=== PATIENT | male | born 1985 | race Caucasian/White ===

== ENCOUNTER 2017-03-27 21:04 | Emergency (ER) | payer OTHER ==
[~2017-03-27] VITALS: Ht 175.3 cm; Wt 95.4 kg
[~2017-03-27 21:04] MED LIST: MUPI15CR TP; SULF1TAB24 PO
[2017-03-27 21:15] VITALS: BP 124/94
[2017-03-27] MEDS ORDERED: AMOX1TAB61 PO (22:36)
--- NOTE | 2017-03-27 22:37 | PHYS DOC ---
Past History Past Medical History: No Pertinent History Past Surgical History: No Surgical History Additional Smoking Information: CHEWS ABOUT A CAN A DAY Alcohol Use: None Drug Use: None Adult General Chief Complaint Chief Complaint: DENTAL PROBLEM HPI HPI Patient is a 31 year old M who presents with tooth pain on the right side of his mouth. He states that he has had this pain intermittently over the past several weeks. However it has been worse over the past several days. He denies fevers sweats or chills. He feels that his pain is worse with eating, warm or cold, and palpation. His pain is improved with [id number] oral numbing medication. He does chew tobacco Review of Systems Review of Systems Constitutional: Denies fever or chills [] Eyes: Denies change in visual acuity, redness, or eye pain [] HENT: Denies nasal congestion or sore throat [] Respiratory: Denies cough or shortness of breath [] Cardiovascular: No additional information not addressed in HPI [] GI: Denies abdominal pain, nausea, vomiting, bloody stools or diarrhea [] : Denies dysuria or hematuria [] Musculoskeletal: Denies back pain or joint pain [] Integument: Denies rash or skin lesions [] Neurologic: Denies headache, focal weakness or sensory changes [] Endocrine: Denies polyuria or polydipsia [] Allergies Allergies Allergies Coded Allergies Type Severity Reaction Last Updated Verified peanut Allergy Unknown 07/31/16 Yes Physical Exam Physical Exam Constitutional: Well developed, well nourished, no acute distress, non-toxic appearance. [] HENT: Normocephalic, atraumatic, right upper jaw pain noted with palpation of molar Eyes: EOMI, conjunctiva normal, no discharge. [] Neck: Normal range of motion, no tenderness, supple, no stridor. [] Cardiovascular:Heart rate regular rhythm, no murmur [] Lungs & Thorax: Bilateral breath sounds clear to auscultation [] Abdomen: Bowel sounds normal, soft, no tenderness, no masses, no pulsatile masses. [] Skin: Warm, dry, no erythema, no rash. [] Back: No tenderness, no CVA tenderness. [] Extremities: No tenderness, no cyanosis, no clubbing, ROM intact, no edema. [] Neurologic: Alert and oriented X 3, normal motor function, normal sensory function, no focal deficits noted. [] Psychologic: Affect normal, judgement normal, mood normal. [] Current Patient Data Vital Signs Vital Signs Date Time Temp Pulse Resp B/P (MAP) Pulse Ox O2 Delivery O2 Flow Rate FiO2 03/27/17 21:15 97.9 66 20 98 Room Air EKG EKG [] Radiology/Procedures Radiology/Procedures [] Course & Med Decision Making Course & Med Decision Making Pertinent Labs and Imaging studies reviewed. (See chart for details) He was given his first dose of and a biotics in the ER and a prescription was sent with him for the duration of his antibiotics. Dragon Disclaimer Dragon Disclaimer This chart was dictated in whole or in part using Voice Recognition software in a busy, high-work load, and often noisy Emergency Department environment. It may contain unintended and wholly unrecognized errors or omissions. Departure Departure: Impression: Primary Impression: Dental abscess Disposition: HOME, SELF-CARE Condition: STABLE Referrals: PCP,NO (PCP) Patient Instructions: Dental Abscess Additional Instructions: Chepe was seen in the emergency department for dental pain. No emergency medical condition was found on history or physical exam. His symptoms are most consistent with a dental infection. He was given his first dose of antibiotics in the ER. He is given a prescription for the remainder of his antibiotic. He is advised follow-up with the dentist as soon as possible for further management. Scripts Amoxicillin/Potassium Clav (AUGMENTIN 875-125 TABLET) 1 Each Tablet 1 TAB PO BID for 14 Days, #28 TAB Prov: JESÚS SWAN MD 03/27/17 JESÚS SWAN MD Mar 27, 2017 22:36
[2017-03-27] MEDS ORDERED: AMOXICILLIN/K CLAV 875/125MG TABLET. PO ONE (23:00)
== END 2017-03-27 23:03 | disposition home or self-care (01) ==
LOC: ER 21:04
DX: K04.7 Periapical abscess without sinus (principal); F17.220 Nicotine dependence, chewing tobacco, uncomplicated; Z91.010 Allergy to peanuts
CPT/HCPCS: 99283

== ENCOUNTER 2018-02-09 21:52 | Emergency (ER) | payer OTHER ==
[~2018-02-09] VITALS: Ht 175.3 cm; Wt 96.6 kg
[~2018-02-09 21:52] MED LIST changes: +AMOX1TAB61 PO
--- NOTE | 2018-02-09 22:33 | ED.ADGEN ---
Past History Past Medical History: No Pertinent History Past Surgical History: Other Alcohol Use: None Drug Use: None Adult General HPI HPI 32-year-old male presents to the emergency department 3 days after he was bit by a tick on the head of his penis. He admits to swelling, redness and a discomfort and tenderness and his inguinal lymph nodes. He denies any dysuria. He denies any fevers, joint aches, vomiting, headache, photophobia or any other complaints. States that he did get the entire tick out. Review of Systems Review of Systems Constitutional: Denies fever or chills Eyes: Denies change in visual acuity, redness, or eye pain HENT: Denies nasal congestion or sore throat Respiratory: Denies cough or shortness of breath Cardiovascular: No additional information not addressed in HPI GI: Denies abdominal pain, nausea, vomiting, bloody stools or diarrhea : Denies dysuria or hematuria Musculoskeletal: Denies back pain or joint pain Neurologic: Denies headache, focal weakness or sensory changes Endocrine: Denies polyuria or polydipsia All other systems were reviewed and found to be within normal limits, except as documented in this note. Family History Family History no sig Allergies Allergies Allergies Coded Allergies Type Severity Reaction Last Updated Verified peanut Allergy Unknown 07/31/16 Yes Physical Exam Physical Exam GENERAL: Awake, alert, no acute distress HEAD/EYES: Normocephalic, EOMI ENT Airway patent, mucous membranes moist NECK: Supple, no meningismus, no swelling RESP: No respiratory distress, symmetrical expansion CV: Normal peripheral perfusion ABD/GI: Non distended, nontender : There is swelling around a tiny central eschar with central clearing and erythema surrounding up to the pubic region, bilateral tender lymphadenopathy, rash itself is nontender SKIN: Warm, dry NEURO: Normal motor observed PSYCH: Cooperative, appropriate affect Current Patient Data Vital Signs Vital Signs Date Time Temp Pulse Resp B/P (MAP) Pulse Ox O2 Delivery O2 Flow Rate FiO2 02/09/18 22:01 98.0 67 20 98 Room Air EKG EKG [] Radiology/Procedures Radiology/Procedures [] Course & Med Decision Making Course & Med Decision Making Pt. has very classic erythema migrans. Not very common in this area, advised and prescribed 21 days of doxycycline and primary care doctor follow-up. Final Impression Final Impression Erythema migrans Plan: Discharge home Dragcatarino Disclaimer Dragon Disclaimer This electronic medical record was generated, in whole or in part, using a voice recognition dictation system. CRISTIANE CASTELLANOS DO Feb 09, 2018 22:33
[2018-02-09] MEDS ORDERED: DOXY100C2 PO (22:39)
[2018-02-09] MEDS ORDERED: PRED20TA PO (22:39)
[2018-02-09 22:49] VITALS: BP 121/69
== END 2018-02-09 22:50 | disposition home or self-care (01) ==
LOC: ER 21:52
DX: A26.0 Cutaneous erysipeloid (principal); R59.1 Generalized enlarged lymph nodes; Z91.010 Allergy to peanuts
CPT/HCPCS: 99283

== ENCOUNTER 2021-05-06 08:51 | Emergency (ER) | payer SELFPAY ==
[~2021-05-06] VITALS: Ht 175.3 cm; Wt 102.0 kg
[~2021-05-06 08:51] MED LIST changes: +DOXY100C3 PO; +PRED20TA PO
[2021-05-06] MEDS ORDERED: KETOROLAC 30 MG/ML VIAL. IVP ONE (09:30)
[2021-05-06] MEDS ORDERED: ONDANSETRON PF 4 MG/2 ML VIAL. IVP ONE (09:30)
[2021-05-06] MEDS ORDERED: IV NORMAL SALINE 1,000ML 1,000 ML IV ONE (09:30)
[2021-05-06 09:52] LABS: BASO % 0 % (0-3); EOS % 0 % (0-3); HEMATOCRIT 45.2 % (39.0-53.0); HEMOGLOBIN 15.7 g/dL (13.0-17.5); LYMPH % 10 % (24-48); MEAN CORPUSCULAR HEMOGLOBIN 31 pg (25-35); MEAN CORPUSCULAR HGB CONC 35 g/dL (31-37); MEAN CORPUSCULAR VOLUME 89 fL (79-100); MONO # 1.1 x10^3/uL (0.0-1.1); MONO % 11 % (0-9); NEUT # 8.2 x10^3uL (1.8-7.7); NEUT % 79 % (31-73); PLATELET COUNT 173 x10^3/uL (140-400); RED CELL DISTRIBUTION WIDTH 12.7 % (11.5-14.5); WHITE BLOOD COUNT 10.3 x10^3/uL (4.0-11.0)
--- NOTE | 2021-05-06 09:52 | PHYS DOC ---
Past History Past Medical History: No Pertinent History Past Surgical History: Other Alcohol Use: None Drug Use: None General Adult EDM: Chief Complaint: MULTIPLE COMPLAINTS HPI: HPI: Patient is a 35-year-old male that presents today with nausea, vomiting, cough, diarrhea, and fever. Patient states his symptoms with cough and fever started on Wednesday and over the last 72 hours or progressively worsen with him unable to keep fluids down having intractable nausea and vomiting and diarrhea. Patient states that he took his temperature at home and the highest he is gotten is 102.6. Patient states he has not had any Covid vaccine or flu vaccine, and has not been around anybody that has been sick that he knows of. Review of Systems: Review of Systems: Constitutional: fever or chills Eyes: Denies change in visual acuity HENT: Denies nasal congestion or sore throat Respiratory: cough,denies shortness of breath Cardiovascular: Denies chest pain or edema GI: Denies abdominal pain, has nausea, vomiting, diarrhea : Denies dysuria Musculoskeletal: Body aches Integument: Denies rash Neurologic: Denies headache, focal weakness or sensory changes Endocrine: Denies polyuria or polydipsia Lymphatic: Denies swollen glands Psychiatric: Denies depression or anxiety Current Medications: Current Meds: Current Medications Medications (Trade) Dose Ordered Sig/Lory Start Time Stop Time Status Last Admin Dose Admin Ketorolac Tromethamine (Toradol 30mg Vial) 30 mg 1X ONCE 05/06/21 09:30 05/06/21 09:31 DC 05/06/21 09:41 30 MG Ondansetron HCl (Zofran) 4 mg 1X ONCE 05/06/21 09:30 05/06/21 09:31 DC 05/06/21 09:38 4 MG Sodium Chloride 1,000 ml @ 1,000 mls/hr 1X ONCE 05/06/21 09:30 05/06/21 10:29 05/06/21 09:28 1,000 MLS/HR Allergies: Allergies: Allergies Coded Allergies Type Severity Reaction Last Updated Verified peanut Allergy Unknown 05/06/21 Yes Physical Exam: PE: Constitutional: Well developed, well nourished, mild distress, non-toxic a ppearance. [] HENT: Normocephalic, atraumatic, bilateral external ears normal, oropharynx moist, no oral exudates, nose normal, tympanic membranes are normal [] Eyes: PERRLA, EOMI, conjunctiva normal, no discharge. [] Neck: Normal range of motion, no tenderness, supple, no stridor. [] Cardiovascular:Heart rate regular rhythm, no murmur [] Lungs & Thorax: Bilateral breath sounds diminished bases Abdomen: Bowel sounds hyperactive, soft, no tenderness, no masses, no pulsatile masses. [] Skin: Warm, moist, no erythema, no rash. [] Back: No tenderness, no CVA tenderness. [] Extremities: No tenderness, no cyanosis, no clubbing, ROM intact, no edema. Peripheral pulses 2+ [] Neurologic: Alert and oriented X 3, normal motor function, normal sensory function, no focal deficits noted. [] Psychologic: Affect normal, judgement normal, mood normal. [] Current Patient Data: Labs: Laboratory Tests Test 05/06/21 09:20 05/06/21 09:27 05/06/21 09:33 White Blood Count 10.3 x10^3/uL Red Blood Count 5.10 x10^6/uL Hemoglobin 15.7 g/dL Hematocrit 45.2 % Mean Corpuscular Volume 89 fL Mean Corpuscular Hemoglobin 31 pg Mean Corpuscular Hemoglobin Concent 35 g/dL Red Cell Distribution Width 12.7 % Platelet Count 173 x10^3/uL Neutrophils (%) (Auto) 79 % Lymphocytes (%) (Auto) 10 % Monocytes (%) (Auto) 11 % Eosinophils (%) (Auto) 0 % Basophils (%) (Auto) 0 % Neutrophils # (Auto) 8.2 x10^3uL Lymphocytes # (Auto) 1.0 x10^3/uL Monocytes # (Auto) 1.1 x10^3/uL Eosinophils # (Auto) 0.0 x10^3/uL Basophils # (Auto) 0.0 x10^3/uL Sodium Level 138 mmol/L Potassium Level 3.5 mmol/L Chloride Level 102 mmol/L Carbon Dioxide Level 24 mmol/L Anion Gap 12 Blood Urea Nitrogen 17 mg/dL Creatinine 1.3 mg/dL Estimated GFR (Cockcroft-Gault) 63.2 BUN/Creatinine Ratio 13 Glucose Level 115 mg/dL Calcium Level 8.4 mg/dL Total Bilirubin 0.9 mg/dL Aspartate Amino Transf (AST/SGOT) 30 U/L Alanine Aminotransferase (ALT/SGPT) 48 U/L Alkaline Phosphatase 80 U/L Total Protein 8.5 g/dL Albumin 4.2 g/dL Albumin/Globulin Ratio 1.0 Lipase 86 U/L Influenza Type A (Rapid) Negative Influenza Type B (Rapid) Negative SARS-CoV-2 Antigen (Rapid) Positive Current Medications Medications (Trade) Dose Ordered Sig/Lory Route PRN Reason Start Time Stop Time Status Last Admin Dose Admin Sodium Chloride 1,000 ml @ 1,000 mls/hr 1X ONCE IV 05/06/21 09:30 05/06/21 10:29 05/06/21 09:28 Ondansetron HCl (Zofran) 4 mg 1X ONCE IVP 05/06/21 09:30 05/06/21 09:31 DC 05/06/21 09:38 Ketorolac Tromethamine (Toradol 30mg Vial) 30 mg 1X ONCE IVP 05/06/21 09:30 05/06/21 09:31 DC 05/06/21 09:41 Vital Signs: Vital Signs Date Time Temp Pulse Resp B/P (MAP) Pulse Ox O2 Delivery O2 Flow Rate FiO2 05/06/21 11:30 88 16 118/70 (86) 97 05/06/21 10:30 96 18 124/78 (93) 95 05/06/21 09:30 93 18 115/67 (83) 97 05/06/21 08:55 98.9 100 18 119/62 (81) 98 Vital Signs Date Time Temp Pulse Resp B/P (MAP) Pulse Ox O2 Delivery O2 Flow Rate FiO2 05/06/21 08:55 98.9 100 18 119/62 (81) 98 EKG: EKG: [] Radiology/Procedures: Radiology/Procedures: REASON: cough PROCEDURE: CHEST AP ONLY Exam Date: 05/06/2021 9:40 AM XR CHEST 1V Indication: Reason: cough / Spl. Instructions: / History: . FINDINGS/ IMPRESSION: The cardiac silhouette and pulmonary vasculature are within normal limits. There is no focal consolidation, pleural effusion or pneumothorax. The visualized osseous structures are intact. Electronically signed by: Jose David Sears MD (05/06/2021 9:51 AM) [id number] [] Heart Score: C/O Chest Pain: N/A Risk Factors: Risk Factors: DM, Current or recent (<one month) smoker, HTN, HLP, family history of CAD, obesity. Risk Scores: Score 0 - 3: 2.5% MACE over next 6 weeks - Discharge Home Score 4 - 6: 20.3% MACE over next 6 weeks - Admit for Clinical Observation Score 7 - 10: 72.7% MACE over next 6 weeks - Early Invasive Strategies Course & Med Decision Making: Course & Med Decision Making Pertinent Labs and Imaging studies reviewed. (See chart for details) Patient was given instructions that they were Covid positive, and that he would need to quarantine for the next 14 days from the first day of his symptoms starting. Patient was given Zofran prescription for the nausea. Patient is instructed to stay hydrated take Tylenol and/or ibuprofen as needed for pain and fever. And strict return precautions patient verbalized understanding of instructions and is agreeable to the plan of care Dragon Disclaimer: Dragcatarino Disclaimer: This electronic medical record was generated, in whole or in part, using a voice recognition dictation system. Departure Departure: Impression: Primary Impression: COVID-19 Additional Impressions: Nausea & vomiting Qualified Codes: R11.2 - Nausea with vomiting, unspecified Diarrhea Qualified Codes: R19.7 - Diarrhea, unspecified Disposition: 01 HOME / SELF CARE / HOMELESS Condition: STABLE Referrals: PCPHEMA (PCP) Patient Instructions: Nausea and Vomiting Additional Instructions: Tylenol and/or ibuprofen as needed for fever and pain Increase by mouth fluids at home, if nausea vomiting occur take Zofran as needed every 6 hours, diet as tolerated you have been diagnosed with COVID-19. It is an infection caused by a new type of coronavirus. COVID-19 will cause cold-like or mild flu symptoms in most. It can cause more severe symptoms like problems breathing in some. There is no treatment for COVID-19. The body will clear the infection over time. Self-care will help to ease discomfort. Steps to Take: Self-Care Rest as needed. Healthy habits may help you feel better. Steps include: Choose healthy foods including fruits and vegetables. Drink water throughout the day. Get plenty of sleep each night. If you smoke, try to quit. It may ease breathing. Avoid alcohol. Keep Others Healthy The virus can spread to others. Droplets are released every time you sneeze or cough. The droplets can get into the mouth, nose, or eyes of people near you and lead to infection. To lower the chances of spreading COVID-19 to others: Stay at home until your doctor has said it is safe to leave. If you tested positive this will mean staying isolated until both of the following are true: At least 7 days have passed since the start of illness. You are free of fever for at least 72 hours without the use of medicine. During this time: - Avoid public areas, events, or transportation. Do not return to work or school until your doctor has said it is safe to do so. - Call ahead if you need to go to a medical center. Let them know you may have COVID-19. It will help them guide you where to go. They may also ask you to wear a facemask when you come to the office. - If you call for emergency medical services, let them know you may have COVID- 19. While at home: - Try to avoid close contact with others. Stay about 6 feet away. - If possible, spend most of your time in a separate room from others. - Use a face mask if you will be in close contact with others such as sharing a room or vehicle. - Have someone wipe down common surfaces in the home. Use household milk pickup driver every day on areas like doorknobs, counters, or sinks. - Cough or sneeze into a tissue. Throw the tissue away right after use. If a tissue is not available, cough or sneeze into your elbow. - Wash your hands often. Wash them after sneezing or coughing. Use soap and wa ter and wash for at least 20 seconds. Alcohol based hand street light lamp cleaner can be used if soap and water is not available. - Do not prepare food for others. Avoid sharing personal items like forks, spoons, or toothbrushes. - Avoid close contact with pets while you are sick. There is no evidence of the virus passing to pets. This is a safety step until more is known about this virus. Isolation can be frustrating. Social interaction can help. Keep in touch with friends and family through phone and tech options. You can still interact with others in your home, just keep a safe distance of about 6 feet. Follow-up: Your doctors office will check in with you to see if there are any changes in your health. You may be asked to keep track of symptoms to share with them. They will also let you know when you are clear to be in public again. Problems to Look Out For: Contact your doctor if your recovery is not going as you expect. Get emergency care if you have problems such as: - Trouble breathing - Nonstop chest pain or pressure - Changes in awareness, confusion, or problems waking - Lips or face have bluish color - Worsening of symptoms If you think you have an emergency, call for emergency medical services right away. As taken from [facility] [place] Health Scripts Ondansetron (ONDANSETRON ODT) 4 Mg Tab.rapdis 1 TAB PO PRN Q6-8HRS for nausea, #16 TAB Prov: DELIA RODRIGUEZ APRN 05/06/21 DELIA RODRIGUEZ APRN May 06, 2021 09:52
[2021-05-06 10:00] LABS: CALCIUM 8.4 mg/dL (8.5-10.1); CREATININE 1.3 mg/dL (0.7-1.3); GFR 63.2; POTASSIUM 3.5 mmol/L (3.5-5.1)
[2021-05-06 10:12] LABS: ALBUMIN 4.2 g/dL (3.4-5.0); TOTAL BILIRUBIN 0.9 mg/dL (0.2-1.0); TOTAL PROTEIN 8.5 g/dL (6.4-8.2)
[2021-05-06 10:12] LABS: INFLUENZA A PATIENT NEGATIVE (NEGATIVE); INFLUENZA B PATIENT NEGATIVE (NEGATIVE)
[2021-05-06] MEDS ORDERED: ONDA4TAB12 PO (10:42)
[2021-05-06 11:30] VITALS: BP 118/70
== END 2021-05-06 11:45 | disposition home or self-care (01) ==
LOC: ER 08:51
DX: U07.1 COVID-19 (principal); R11.2 Nausea with vomiting, unspecified; R19.7 Diarrhea, unspecified; Z91.010 Allergy to peanuts
CPT/HCPCS: 71045; 80053; 83690; 85025; 87426; 87804; 96361; 96374; 96375; 99284; C9803; J1885; J2405; J7030; U0003

== ENCOUNTER 2021-05-10 11:05 | Emergency (ER) | payer SELFPAY ==
[~2021-05-10] VITALS: Ht 175.3 cm; Wt 103.1 kg
[~2021-05-10 11:05] MED LIST changes: +ONDA4TAB12 PO
[2021-05-10] MEDS ORDERED: IOHEXOL 350 MG/ML 100 ML VIAL. IV ONE (11:30)
--- NOTE | 2021-05-10 11:35 | PHYS DOC ---
Past History Past Medical History: No Pertinent History Additional Past Medical Histor: ADHD Past Surgical History: No Surgical History Alcohol Use: Rarely Drug Use: None General Adult EDM: Chief Complaint: FATIGUE HPI: HPI: 35-year-old male presents with fatigue, body aches, chest pain, shortness of breath. The patient was diagnosed with COVID-19 5 days ago. He presents today because he is feeling worse. He has not measured a fever at home. He states feeling hot right now. He has decreased taste. He denies any cardiac history. Denies smoking, vaping, alcohol, or drug use. Patient was not vaccinated against COVID-19. Review of Systems: Review of Systems: Constitutional: Chills, fatigue, body aches Eyes: Denies change in visual acuity HENT: Denies nasal congestion or sore throat Respiratory: Cough with shortness of breath Cardiovascular: Chest pain GI: Denies abdominal pain, nausea, vomiting, bloody stools or diarrhea : Denies dysuria Musculoskeletal: Denies back pain or joint pain Integument: Denies rash Neurologic: Denies headache, focal weakness or sensory changes Endocrine: Denies polyuria or polydipsia Lymphatic: Denies swollen glands Psychiatric: Denies depression or anxiety Current Medications: Current Meds: Current Medications Medications (Trade) Dose Ordered Sig/Lory Start Time Stop Time Status Last Admin Dose Admin Iohexol (Omnipaque 350 Mg/ml) 100 ml 1X ONCE 05/10/21 11:30 05/10/21 11:31 UNV Allergies: Allergies: Allergies Coded Allergies Type Severity Reaction Last Updated Verified peanut Allergy Unknown 05/06/21 Yes Physical Exam: PE: Constitutional: Well developed, well nourished, no acute distress. [] HENT: Normocephalic, atraumatic, bilateral external ears normal, oropharynx moist, no oral exudates, nose normal. [] Eyes: PERRLA, EOMI, conjunctiva normal, no discharge. [] Neck: Normal range of motion, no tenderness, supple, no stridor. [] Cardiovascular: Heart rate 90, regular rhythm, no murmur [] Lungs & Thorax: Bilateral breath sounds diminished but clear. [] Abdomen: Bowel sounds normal, soft, no tenderness, no masses, no pulsatile masses. [] Skin: Warm, dry, no erythema, no rash. [] Back: No tenderness, no CVA tenderness. [] Extremities: No tenderness, no cyanosis, no clubbing, ROM intact, no edema. [] Neurologic: Alert and oriented X 3, normal motor function, normal sensory function, no focal deficits noted. [] Psychologic: Affect normal, judgement normal, mood normal. [] EKG: EKG: Sinus rhythm, rate 90, normal axis, no ST elevation or depression, PVCs. [] Radiology/Procedures: Radiology/Procedures: [] Impressions: CTA scan of the Chest with Contrast (Pulmonary Embolism protocol) 05/10/2021 Clinical History: Covid 19. Ventricular tachycardia. Technique: After the intravenous administration of 100 cc of Omnipaque 350 contiguous, 0.625 mm axial sections were obtained through the chest. 2 mm axial and 3D MIP coronal and sagittal reconstructed images were obtained. One or more of the following individualized dose reduction techniques were utilized for this study: 1. Automated exposure control. 2. Adjustment of the mA and/or kV according to patient size. 3. Use of iterative reconstruction technique. Findings: Comparison is made to patient's chest radiograph performed earlier today. No filling defect is seen within the major branches of either pulmonary artery. There is no CT evidence of pulmonary embolism. The heart and thoracic aorta are within normal limits. Enlarged likely reactive hilar lymph nodes are seen. These measure 1 to 1.5 cm in size. Patchy perihilar groundglass infiltrates are seen throughout both lungs consistent with the patient's history of Covid 19 pneumonia. No pleural effusion or pneumothorax is seen. Impression: There is no CT evidence of pulmonary embolism. Electronically signed by: Carlos Gregory MD (05/10/2021 12:42 PM) [id number] DICTATED AND SIGNED BY: CARLOS GREGORY MD DATE: 05/10/21 1525 CC: KATALINA MEYER DO; PCP,NO ~MTH0 0 Heart Score: C/O Chest Pain: Yes HEART Score for Chest Pain: HEART Score for Chest Pain Response (Comments) Value History Slighlty/Non-Suspicious 0 ECG Nonspecific Repolarizatio 1 Age < 45 0 Risk Factors 1 or 2 Risk Factors 1 Troponin < Normal Limit 0 Total 2 Risk Factors: Risk Factors: DM, Current or recent (<one month) smoker, HTN, HLP, family history of CAD, obesity. Risk Scores: Score 0 - 3: 2.5% MACE over next 6 weeks - Discharge Home Score 4 - 6: 20.3% MACE over next 6 weeks - Admit for Clinical Observation Score 7 - 10: 72.7% MACE over next 6 weeks - Early Invasive Strategies Course & Med Decision Making: Course & Med Decision Making Pertinent Labs and Imaging studies reviewed. (See chart for details) On arrival the patient is having frequent PVCs. He denies history of PVCs or any other cardiac condition. He had a 3 to 4-second run of V. tach after being hooked to the monitor. We have prepared cardiac pads in the crash cart. Patient's labs are unremarkable. His troponin is negative. After a liter of fluid, he has PVCs have slowed. We will give him a second liter. His CT angiogram of the chest shows bilateral groundglass opacities consistent with COVID-19 pneumonia. There is no pulmonary embolus. The patient's oxygen level has down below 90. He continues to be tachycardic to 120. His oxygen saturation on room air is usually above 90, but his respiratory rate is in the upper twenties. I'm concerned about the patient worsening. I spoke with the hospitalist, Dr. De and he has advised magnesium, potassium, IV antibiotics, IV steroids, and will Lovenox. He has accepted the patient for admission. [] Yanci Disclaimer: Yanci Disclaimer: This electronic medical record was generated, in whole or in part, using a voice recognition dictation system. Departure Departure: Impression: Primary Impression: COVID-19 Disposition: ADMITTED INPATIENT Admitting Physician: Andrew De Condition: GUARDED Referrals: PCP,HEMA (PCP) KATALINA MEYER DO May 10, 2021 11:35
[2021-05-10] MEDS ORDERED: ONDANSETRON PF 4 MG/2 ML VIAL. IVP ONE (11:45)
[2021-05-10] MEDS ORDERED: IV NORMAL SALINE 1,000ML 1,000 ML IV ONE ×2 (11:45→12:45)
[2021-05-10 11:58] LABS: BASO % 0 % (0-3); EOS % 0 % (0-3); HEMATOCRIT 44.6 % (39.0-53.0); HEMOGLOBIN 15.8 g/dL (13.0-17.5); LYMPH # 0.9 x10^3/uL (1.0-4.8); LYMPH % 17 % (24-48); MEAN CORPUSCULAR HEMOGLOBIN 31 pg (25-35); MEAN CORPUSCULAR HGB CONC 35 g/dL (31-37); MEAN CORPUSCULAR VOLUME 87 fL (79-100); MONO # 0.6 x10^3/uL (0.0-1.1); MONO % 11 % (0-9); NEUT # 4.1 x10^3uL (1.8-7.7); NEUT % 73 % (31-73); PLATELET COUNT 137 x10^3/uL (140-400); RED BLOOD COUNT 5.15 x10^6/uL (4.30-5.70); RED CELL DISTRIBUTION WIDTH 12.7 % (11.5-14.5); WHITE BLOOD COUNT 5.7 x10^3/uL (4.0-11.0)
[2021-05-10 12:01] LABS: CALCIUM 8.5 mg/dL (8.5-10.1); CREATININE 1.3 mg/dL (0.7-1.3); GFR 63.2; POTASSIUM 3.4 mmol/L (3.5-5.1)
[2021-05-10 12:09] LABS: ALBUMIN 3.4 g/dL (3.4-5.0); ALBUMIN/GLOBULIN RATIO 0.7 (1.0-1.7); TOTAL BILIRUBIN 0.8 mg/dL (0.2-1.0); TOTAL PROTEIN 8.2 g/dL (6.4-8.2)
--- NOTE | 2021-05-10 12:27 | EKG ---
[address] [address] Test Date: 2021-05-10 Test Time: 11:21:47 Pat Name: JUDITH ISAACS Department: Room: Gender: M Entrepreneur: MAYUR : 1985 Requested By: KATALINA MEYER Order Number: [id number] Reading MD: Measurements Intervals [place] Rate: 90 P: 36 WV: 142 QRS: 15 QRSD: 100 T: 36 QT: 316 QTc: 390 Interpretive Statements SINUS RHYTHM VENTRICULAR PREMATURE COMPLEX(ES) ABNORMAL ECG RI6.02 No previous ECG available for comparison
--- NOTE | 2021-05-10 12:44 | RAD ---
CTA scan of the Chest with Contrast (Pulmonary Embolism protocol) 05/10/2021 Clinical History: Covid 19. Ventricular tachycardia. Technique: After the intravenous administration of 100 cc of Omnipaque 350 contiguous, 0.625 mm axial sections were obtained through the chest. 2 mm axial and 3D MIP coronal and sagittal reconstructed images were obtained. One or more of the following individualized dose reduction techniques were utilized for this study: 1. Automated exposure control. 2. Adjustment of the mA and/or kV according to patient size. 3. Use of iterative reconstruction technique. Findings: Comparison is made to patient's chest radiograph performed earlier today. No filling defect is seen within the major branches of either pulmonary artery. There is no CT eviden ce of pulmonary embolism. The heart and thoracic aorta are within normal limits. Enlarged likely reac tive hilar lymph nodes are seen. These measure 1 to 1.5 cm in size. Patchy perihilar groundglass infiltrates are seen throughout both lungs consistent with the patient's history of Covid 19 pneumonia. No pleural effusion or pneumothorax is seen. Impression: There is no CT evidence of pulmonary embolism. Electronically signed by: Carlos Peguero MD (05/10/2021 12:42 PM) [id number]
--- NOTE | 2021-05-10 13:12 | RAD ---
Study: XR CHEST 1V Indication: Shortness of breath. Comparison: 05/06/2021 Findings: Worsened appearance of the chest with progressive infiltrates throughout both lungs. No pleural effus ion or pneumothorax. Unchanged cardiomediastinal silhouette and randall. Impression: More extensive airspace infiltrates in relation to the 05/06/2021 comparison most likely an atypical/ viral pneumonia given history. Electronically signed by: ELZBIETA OWENS MD (05/10/2021 1:09 PM) [id number]
[2021-05-10 13:50] LABS: BARBITURATES NEG (NEG); BENZODIAZEPINES NEG (NEG); CANNABINOIDS NEG (NEG); COCAINE NEG (NEG); METHADONE NEG (NEG); OPIATES NEG (NEG); PHENCYCLIDINE NEG (NEG)
[2021-05-10 13:54] LABS: AMPHETAMINE/METHAMPHETAMINE NEG (NEG)
[2021-05-10 13:55] LABS: BACTERIA,URINE 0 /HPF (0-FEW); BILIRUBIN,URINE NEG (NEG); CLARITY,URINE CLEAR; COLOR,URINE YELLOW; GLUCOSE,URINE NEG (NEG); NITRITE,URINE NEG (NEG); RBC,URINE OCC /HPF (0-2); UROBILINOGEN,URINE 0.2 mg/dL (0.2 mg/dL)
[2021-05-10] MEDS ORDERED: DEXAMETHASONE SOD PHOS 10 MG/ML VIAL. IVP ONE (14:15)
[2021-05-10] MEDS ORDERED: POTASSIUM CHLORIDE 20 MEQ TABLET.ER. PO ONE (14:15)
[2021-05-10] MEDS ORDERED: MAGNESIUM SULFATE 1GM 100 ML IV ONE (14:15)
[2021-05-10] MEDS ORDERED: AZITHROMYCIN 500 MG in IV NORMAL SALINE 250ML 250 ML IV ONE (14:15)
[2021-05-10] MEDS ORDERED: ENOXAPARIN ** NOTE DOSE ** SYRINGE SQ ONE (14:15)
[2021-05-10] MEDS ORDERED: ACETAMINOPHEN 325 MG TABLET PO PRN (14:30)
[2021-05-10] MEDS ORDERED: ONDANSETRON PF 4 MG/2 ML VIAL. IVP PRN (14:30)
[2021-05-10] MEDS ORDERED: AZITHROMYCIN 500 MG VIAL. IV ONE (14:35)
[2021-05-10] MEDS ORDERED: IV NORMAL SALINE 250ML 250 ML ONE (14:35)
[2021-05-10] MEDS ORDERED: IV NORMAL SALINE 50ML 50 ML ONE (14:35)
[2021-05-10] MEDS ORDERED: cefTRIAXone SODIUM 1 GM VIAL ONE (14:35)
[2021-05-10] MEDS ORDERED: LOPERAMIDE 2 MG CAPSULE PO ONE ×2 (14:47→15:00)
[2021-05-10] MEDS: FAMOTIDINE 20 MG TABLET PO SCH (23:36)
[2021-05-10] MEDS: DEXAMETHASONE SOD PHOS 4 MG/ML VIAL. IVP SCH (23:37)
[2021-05-11] MEDS ORDERED: CHOLECALCIFEROL (VITAMIN D3) 50,000 UNIT CAPSULE PO SCH (09:00)
[2021-05-11] MEDS ORDERED: ENOXAPARIN 40 MG/0.4 ML SYRINGE. SQ SCH (09:00)
[2021-05-11] MEDS ORDERED: ASCORBIC ACID 1,000 MG TABLET PO SCH (09:00)
[2021-05-11] MEDS ORDERED: ZINC SULFATE 220 MG CAPSULE. PO SCH (09:00)
[2021-05-11] MEDS: DEXAMETHASONE SOD PHOS 4 MG/ML VIAL. IVP SCH (09:04)
[2021-05-11] MEDS: FAMOTIDINE 20 MG TABLET PO SCH (09:04)
[2021-05-11] MEDS ORDERED: AZITHROMYCIN 500 MG VIAL. IV ONE (12:25)
[2021-05-11] MEDS ORDERED: IV NORMAL SALINE 50ML 50 ML ONE (12:25)
[2021-05-11] MEDS ORDERED: IV NORMAL SALINE 250ML 250 ML ONE (12:25)
[2021-05-11] MEDS ORDERED: cefTRIAXone SODIUM 1 GM VIAL ONE (12:25)
[2021-05-11] MEDS ORDERED: AZIT250T6 PO (13:03)
[2021-05-11] MEDS ORDERED: DEXA4TAB63 PO (13:03)
[2021-05-11 13:10] VITALS: BP 121/67
[2021-05-11] MEDS ORDERED: AZITHROMYCIN 250 MG in IV NORMAL SALINE 250ML 250 ML IV SCH (14:00)
[2021-05-11] MEDS ORDERED: DEXA6TAB6 PO (18:19)
[2021-05-11] MEDS ORDERED: AZIT250T PO (18:19)
[2021-05-11] MEDS ORDERED: CEFD300C PO (18:19)
[2021-05-11 18:36] LABS: BASO % 0 % (0-3); EOS % 0 % (0-3); HEMATOCRIT 45.3 % (39.0-53.0); HEMOGLOBIN 15.4 g/dL (13.0-17.5); LYMPH # 0.8 x10^3/uL (1.0-4.8); LYMPH % 15 % (24-48); MEAN CORPUSCULAR HEMOGLOBIN 30 pg (25-35); MEAN CORPUSCULAR HGB CONC 34 g/dL (31-37); MEAN CORPUSCULAR VOLUME 89 fL (79-100); MONO # 0.6 x10^3/uL (0.0-1.1); MONO % 12 % (0-9); NEUT # 3.5 x10^3uL (1.8-7.7); NEUT % 72 % (31-73); PLATELET COUNT 126 x10^3/uL (140-400); RED BLOOD COUNT 5.08 x10^6/uL (4.30-5.70); RED CELL DISTRIBUTION WIDTH 12.8 % (11.5-14.5); WHITE BLOOD COUNT 4.9 x10^3/uL (4.0-11.0)
[2021-05-11 18:59] LABS: GFR 85.5; POTASSIUM 3.9 mmol/L (3.5-5.1)
[2021-05-11 19:06] LABS: ALBUMIN 2.9 g/dL (3.4-5.0); ALBUMIN/GLOBULIN RATIO 0.6 (1.0-1.7); TOTAL BILIRUBIN 0.5 mg/dL (0.2-1.0); TOTAL PROTEIN 7.5 g/dL (6.4-8.2)
--- NOTE | 2021-05-11 19:25 | SSS ---
DATE OF SERVICE: 05/11/2021 ADMIT DATE: 05/10/2021 HISTORY OF PRESENT ILLNESS: The patient is a 35-year-old male patient who presented to the Emergency Room with a complaint of fatigue, body aches, chest pain, shortness of breath. He was diagnosed with COVID-19 five days ago. He presents to the Emergency Room of [facility], he is feeling worse. He has not measured fever at home. He states feeling hot right now. He has decreased taste. He denied any cardiac history. Denied any smoking or vaping, alcohol or drug use. He was not vaccinated against COVID-19. He was extensively investigated in the Emergency Room and has had lab work as well as imaging studies. His lab work showed that his CBC was normal. His pH was 7.48, pCO2 of 35, pO2 of 40. It was venous blood. His chemistry, he has hyponatremia, mild hypokalemia and his magnesium was 2.2. His urinalysis was essentially unremarkable and toxic screen was negative. Apparently, while in the Emergency Room, he was noted to have multiple ventricular ectopic beats and short runs of ventricular tachycardia; however, on questioning him, the patient denied any history of frequent PVCs or any other cardiac condition. He also had episodes of 3-4 seconds run of V-tach after being hooked to the monitor. He had prepared. The patient's labs were unremarkable. His troponin was negative. After a liter of fluid, his PVCs has slowed down. He did receive another liter of fluid. His CT angiogram of the chest shows bilateral ground glass opacities consistent with COVID-19 pneumonia, but there is no pulmonary emboli. The the patient's oxygen level was down below 90. He continues to be tachycardic to 120. His oxygen saturation on room air is usually above 90, but his respiratory rate was in the upper 20s. As there was concern about his condition worsening, we did check his magnesium and potassium and started on IV antibiotic, IV steroids as well as Lovenox and the plan was for him to be admitted today for inpatient treatment. However, his condition has stabilized. He is now maintaining his oxygen saturation at 96-97% on room air. His heart rate has normalized. In fact, he is emphasizing he is in sinus bradycardia. Apart from cough, he denied any other complaint, and therefore, a decision was made to discharge him home to continue on oral antibiotic and steroids with a clear instruction that if his symptoms deteriorated, especially if his oxygen is persistently below 90%, he has recurrent cough or shortness of breath that is worsening or has fever, he should come to the Emergency Room [facility]. PAST MEDICAL HISTORY: Unremarkable except ADHD. PAST SURGICAL HISTORY: Unremarkable except some surgery for his eyes when he was a child. ALLERGIES: He has no known drug allergies. MEDICATIONS: He is currently on no medication. FAMILY HISTORY: Noncontributory. SOCIAL HISTORY: He is ; however, he does not smoke, drink alcohol or use recreational drugs. 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 PHYSICAL EXAMINATION: GENERAL: When I examined him this evening, he looked well and was clearly in no apparent respiratory distress. There was no pallor, jaundice, cyanosis or thyromegaly. No jugular venous distention. No limb edema. VITAL SIGNS: His heart rate was 69, blood pressure is 121/67, temperature was 99.2, respiratory rate was 20 and oxygen saturation was 96% on room air. HEAD, EYES, EARS, NOSE, AND THROAT: Normocephalic, atraumatic. NECK: Supple. HEART: Showed normal first and second heart sounds, no gallop or murmur. CHEST: Shows central trachea, equal bilateral expansion, air entry, vesicular breath sounds. I could not appreciate any crepitation or rhonchi. ABDOMEN: Distended, soft, nontender. NEUROLOGIC: He was grossly intact. LABORATORY DATA: His white cell count was 5700, hemoglobin 15.8, hematocrit 44.6, MCV 87 and platelet count of 137,000 with a normal manual differential. His chemistry showed a serum sodium of 129, potassium 3.4, chloride 90, bicarbonate 28, anion gap of 11, BUN 15, creatinine 1.3. Estimated GFR was 63, glucose 118, calcium was 8.5, magnesium was 2.2. Total bilirubin and alkaline phosphatase are normal. AST, ALT is slightly elevated. His total protein 8.2, albumin was 3.4. Urinalysis essentially unremarkable. Toxic screen was negative and his chest x-ray showed worsened appearance of the chest with progressive infiltrate throughout both lungs. No pleural effusion or pneumothorax, unchanged cardiomediastinal silhouette and randall. Impression: More extensive airspace infiltrate in relation to 05/06/2021. Comparison most likely an atypical or viral pneumonia given history. His CT angio of the chest showed no filling defect is seen within the major branches of the either pulmonary artery. There is no CT evidence of pulmonary embolism. The heart and thoracic aorta are within normal limits; enlarged, likely reactive hilar lymph nodes are seen. These measures up to 1-1.5 cm in size. Patchy perihilar ground glass infiltrates are seen throughout both lungs consistent with patient's history of COVID-19 pneumonia. No pleural effusion or pneumothorax is seen. ASSESSMENT AND PLAN: In summary, this is a 35-year-old male patient who was seen in the Emergency Room with COVID-19 pneumonia. He has also multiple episodes of premature ventricular contraction and short runs of ventricular tachycardia that has completely subsided. He is now maintaining his oxygen saturation of 96% on room air with no requirement for oxygen, and therefore, the patient will be discharged home to continue on Zithromax and cefdinir as well as dexamethasone. I asked him to buy a pulse oximeter, it costs about $18 from [employer] to monitor his oxygen saturation and if he has symptoms worsened in any way, shape or form, particularly has persistent hypoxemia, worsening shortness of breath or fever, he should come to the Emergency Room [facility]. LETICIA/EKT/YUNI DR: LETICIA/kalen TID: [id number]
== END 2021-05-11 21:14 | disposition home or self-care (01) ==
LOC: ER 11:05
DX: U07.1 COVID-19 (principal); R07.9 Chest pain, unspecified; Z91.018 Allergy to other foods
CPT/HCPCS: 36415; 71045; 71275; 80053; 80307; 81001; 82803; 83735; 84484; 85025; 93005; 96361; 96365; 96366; 96367; 96368; 96372; 96375; 99285; J0456; J0696; J1100; J1650; J2405; J3475; J7030; J7050; Q9967

== ENCOUNTER 2021-05-12 07:06 | Inpatient (IN) | payer SELFPAY ==
[~2021-05-12] VITALS: Ht 177.8 cm; Wt 98.5 kg
[~2021-05-12 07:06] MED LIST changes: +AZIT250T PO; +AZIT250T6 PO; +CEFD300C PO; +DEXA4TAB63 PO; +DEXA6TAB6 PO
--- NOTE | 2021-05-12 08:28 | PHYS DOC ---
Past History Past Medical History: No Pertinent History Additional Past Medical Histor: ADHD Past Surgical History: No Surgical History Alcohol Use: None Drug Use: None General Adult EDM: Chief Complaint: SHORTNESS OF BREATH HPI: HPI: 35-year-old male returns the emergency room via EMS for shortness of breath. Patient just left this facility 9 hours ago. He has confirmed COVID-19. He returned the emergency room because his oxygen saturation at home was in the low 80s. EMS did find the patient to be in the mid 80s on room air so they placed him on 4 L of oxygen. He then improved and 95%. They transported him to the emergency room. Patient has no new complaints. Review of Systems: Review of Systems: Constitutional: Body aches, fatigue. Eyes: Denies change in visual acuity HENT: Denies nasal congestion or sore throat Respiratory: shortness of breath Cardiovascular: Denies chest pain or edema GI: Denies abdominal pain, nausea, vomiting, bloody stools or diarrhea : Denies dysuria Musculoskeletal: Denies back pain or joint pain Integument: Denies rash Neurologic: Denies headache, focal weakness or sensory changes Endocrine: Denies polyuria or polydipsia Lymphatic: Denies swollen glands Psychiatric: Denies depression or anxiety Allergies: Allergies: Allergies Coded Allergies Type Severity Reaction Last Updated Verified peanut Allergy Unknown 05/06/21 Yes Physical Exam: PE: Constitutional: Well developed, well nourished, no acute distress, non-toxic appearance. [] HENT: Normocephalic, atraumatic, bilateral external ears normal, oropharynx moist, no oral exudates, nose normal. [] Eyes: PERRLA, EOMI, conjunctiva normal, no discharge. [] Neck: Normal range of motion, no tenderness, supple, no stridor. [] Cardiovascular: Heart rate regular rhythm, no murmur [] Lungs & Thorax: Bilateral breath sounds coarse [] Abdomen: Bowel sounds normal, soft, no tenderness, no masses, no pulsatile masses. [] Skin: Warm, dry, no erythema, no rash. [] Back: No tenderness, no CVA tenderness. [] Extremities: No tenderness, no cyanosis, no clubbing, ROM intact, no edema. [] Neurologic: Alert and oriented X 3, normal motor function, normal sensory function, no focal deficits noted. [] Psychologic: Affect normal, judgement normal, mood normal. [] Current Patient Data: Vital Signs: Vital Signs Date Time Temp Pulse Resp B/P (MAP) Pulse Ox O2 Delivery O2 Flow Rate FiO2 05/12/21 07:26 73 28 92/35 (54) 88 Room Air EKG: EKG: [] Radiology/Procedures: Radiology/Procedures: [] Heart Score: C/O Chest Pain: N/A Risk Factors: Risk Factors: DM, Current or recent (<one month) smoker, HTN, HLP, family history of CAD, obesity. Risk Scores: Score 0 - 3: 2.5% MACE over next 6 weeks - Discharge Home Score 4 - 6: 20.3% MACE over next 6 weeks - Admit for Clinical Observation Score 7 - 10: 72.7% MACE over next 6 weeks - Early Invasive Strategies Course & Med Decision Making: Course & Med Decision Making Pertinent Labs and Imaging studies reviewed. (See chart for details) After a short time at home, the patient appears to have worsened and needs oxygen at this time. He is on supplemental oxygen in the emergency room. I will admit the patient to the hospital but he will be held in the emergency room as we have no beds. I spoke with Dr. De and he is accepted the patient for admission. [] Dragon Disclaimer: Dragcatarino Disclaimer: This electronic medical record was generated, in whole or in part, using a voice recognition dictation system. Departure Departure: Impression: Primary Impression: COVID-19 Additional Impression: Pneumonia due to COVID-19 virus Disposition: ADMITTED INPATIENT Admitting Physician: Andrew De Condition: STABLE Referrals: PCP,HEMA (PCP) KATALINA MEYER DO May 12, 2021 08:28
[2021-05-12] MEDS ORDERED: ENOXAPARIN ** NOTE DOSE ** SYRINGE SQ SCH (09:00)
[2021-05-12] MEDS ORDERED: ACETAMINOPHEN 325 MG TABLET PO PRN (09:00)
[2021-05-12] MEDS ORDERED: DEXAMETHASONE SOD PHOS 10 MG/ML VIAL. IV SCH (09:00)
[2021-05-12] MEDS ORDERED: ONDANSETRON PF 4 MG/2 ML VIAL. IVP PRN (09:00)
[2021-05-12] MEDS ORDERED: IV NORMAL SALINE 50ML 50 ML ONE (09:08)
[2021-05-12] MEDS ORDERED: cefTRIAXone SODIUM 1 GM VIAL ONE (09:09)
[2021-05-12] MEDS: AZITHROMYCIN 250 MG TABLET. PO SCH (09:12)
[2021-05-12 09:29] LABS: BASO % 0 % (0-3); EOS % 0 % (0-3); HEMATOCRIT 41.1 % (39.0-53.0); HEMOGLOBIN 14.4 g/dL (13.0-17.5); LYMPH # 0.7 x10^3/uL (1.0-4.8); LYMPH % 8 % (24-48); MEAN CORPUSCULAR HEMOGLOBIN 31 pg (25-35); MEAN CORPUSCULAR HGB CONC 35 g/dL (31-37); MEAN CORPUSCULAR VOLUME 87 fL (79-100); MONO # 0.7 x10^3/uL (0.0-1.1); MONO % 8 % (0-9); NEUT # 7.1 x10^3uL (1.8-7.7); NEUT % 84 % (31-73); PLATELET COUNT 155 x10^3/uL (140-400); RED BLOOD COUNT 4.71 x10^6/uL (4.30-5.70); RED CELL DISTRIBUTION WIDTH 12.8 % (11.5-14.5); WHITE BLOOD COUNT 8.5 x10^3/uL (4.0-11.0)
--- NOTE | 2021-05-12 09:43 | RAD ---
EXAM: Chest, single view. HISTORY: Covid 19. Shortness of breath. COMPARISON: 05/10/2021 FINDINGS: A frontal view of the chest is obtained. There is increased diffuse interstitial and alveol ar infiltrate. There is no pleural effusion or pneumothorax. The heart is stable in size. IMPRESSION: Increased interstitial and alveolar infiltrate. Electronically signed by: Matilde Carver MD (05/12/2021 9:41 AM) [id number]
[2021-05-12 09:54] LABS: CALCIUM 7.6 mg/dL (8.5-10.1); CREATININE 1.1 mg/dL (0.7-1.3); GFR 76.6; POTASSIUM 3.6 mmol/L (3.5-5.1)
[2021-05-12 10:00] LABS: ALBUMIN 2.8 g/dL (3.4-5.0); ALBUMIN/GLOBULIN RATIO 0.7 (1.0-1.7); TOTAL BILIRUBIN 0.6 mg/dL (0.2-1.0)
--- NOTE | 2021-05-12 15:31 | HP ---
DATE OF SERVICE: 05/12/2021 ADMIT DATE: 05/12/2021 HISTORY OF PRESENT ILLNESS: The patient is a 35-year-old male patient who was seen in this Emergency Department yesterday, but he was discharged yesterday as he was doing well. His oxygen saturation was 97% and he did have initially multiple episodes of premature ventricular contractions as well as short runs of ventricular tachycardia that has resolved. As that has subsided, a decision was made to discharge him home, to continue on oral antibiotic and steroids. However, he was given clear instructions to come back to the nearest Emergency Room if he developed more shortness of breath or fever or hypoxia, and in fact, he returned to the Emergency Room via EMS with shortness of breath. He left this facility about 9 hours ago. He has confirmed it could be COVID-19. He came to the Emergency Room because his oxygen saturation at home was down to 80%. EMS did find the patient to be in mid-80s on room air and he was placed on 4 liters of oxygen. He did improve to 95% and was transported to the Emergency Room for further evaluation and treatment. On questioning him, he stated that he has started complaining of more shortness of breath, cough, phlegm, chest pain, nausea and some vomiting, but no diarrhea. He did have also fever. He was restarted on his antibiotics as well as Lovenox, remdesivir and dexamethasone and oxygen and will be admitted back to the hospital to continue inpatient treatment. PAST MEDICAL HISTORY: Unremarkable except ADHD. PAST SURGICAL HISTORY: Unremarkable except for surgery of his eyes when he was a child. ALLERGIES: He has no known drug allergies. MEDICATIONS: He was discharged on cefdinir, Zithromax and dexamethasone. FAMILY HISTORY: Noncontributory. SOCIAL HISTORY: He is , has a son and a daughter. He does not smoke, drink alcohol or use recreational drugs. 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 REVIEW OF SYSTEMS: As per history of present illness. PHYSICAL EXAMINATION: GENERAL: When I examined him this afternoon, he was resting slightly propped up in bed, in no apparent respiratory distress. There was no pallor, jaundice, cyanosis or thyromegaly. No jugular venous distention. No limb edema. VITAL SIGNS: His heart rate was 79, blood pressure was 118/70, temperature 98.1, respiratory rate 20, and oxygen saturation was 95% on 5 liters of oxygen. HEAD, EYES, EARS, NOSE AND THROAT: Normocephalic, atraumatic. NECK: Supple. HEART: Showed normal first and second heart sounds. No gallop, rub or murmur. CHEST: Clear to auscultation. Chest shows central trachea, equal bilateral chest expansion, air entry, vesicular breath sounds with bilateral basal crepitation posteriorly. I could not really appreciate any rhonchi. ABDOMEN: Distended, soft, nontender. NEUROLOGIC: He was grossly intact. LABORATORY DATA: His lab work showed a white cell count of 8500, hemoglobin 14.4, hematocrit 41, MCV 87 and platelet count of 155,000, with a manual differential of 84% polymorphs, 8% lymphocytes and 8% monocytes. His chemistry showed a serum sodium of 133, potassium 3.6, chloride 98, bicarbonate 26, anion gap of 9, BUN 19, creatinine 1.1. Estimated GFR was 76 mL per minute. His glucose 130, calcium was 7.6. Total bilirubin, AST, ALT, alkaline phosphatase were normal. Total protein 7, albumin was 2.8. IMAGING: His chest x-ray showed that there is increase in diffuse interstitial alveolar infiltrate. There is no pleural effusion or pneumothorax. The heart size is stable. ASSESSMENT AND PLAN: The patient was admitted with COVID-19 pneumonia, acute hypoxic respiratory failure. He did have a CT angio of the chest yesterday, which showed no evidence of pulmonary emboli. Plan is to continue with IV antibiotics in the form of ceftriaxone and Zithromax. Continue with dexamethasone. We did order remdesivir, contact the pharmacy to see if he qualifies for that, and also we will start him on Lovenox and oxygen, titrate as needed to maintain his oxygen saturation above 90%. LETICIA/EN DR: Gabo TID: [id number]
[2021-05-12] MEDS ORDERED: REMDESIVIR LOAD in IV NORMAL SALINE 250ML TV IV ONE (17:00)
[2021-05-12 23:04] VITALS: BP 108/63
[2021-05-12] MEDS: FAMOTIDINE 20 MG TABLET PO SCH (23:45)
[2021-05-12] MEDS ORDERED: CHOLECALCIFEROL (VITAMIN D3) 50,000 UNIT CAPSULE PO SCH (23:45)
[2021-05-13] MEDS: ENOXAPARIN 40 MG/0.4 ML SYRINGE. SQ SCH ×3 (00:11→21:28)
[2021-05-13] MEDS: ZINC SULFATE 220 MG CAPSULE. PO SCH ×2 (00:14→10:48)
[2021-05-13] MEDS: ASCORBIC ACID 1,000 MG TABLET PO SCH ×2 (00:14→10:49)
[2021-05-13 05:20] VITALS: BP 99/64
[2021-05-13] MEDS ORDERED: BUDESONIDE 0.5 MG/2 ML NEBU NEB PRN (08:30)
[2021-05-13] MEDS ORDERED: IPRATRPIUM/ALBUTEROL 0.5/2.5MG 3 ML NEBU. NEB PRN (08:30)
[2021-05-13] MEDS ORDERED: CHOLECALCIFEROL (VITAMIN D3) 50,000 UNIT CAPSULE PO SCH (09:00)
[2021-05-13 10:08] LABS: ALBUMIN 2.5 g/dL (3.4-5.0); ALBUMIN/GLOBULIN RATIO 0.6 (1.0-1.7); CREATININE 0.9 mg/dL (0.7-1.3); GFR 96.6; MAGNESIUM 2.7 mg/dL (1.8-2.4); POTASSIUM 3.6 mmol/L (3.5-5.1); TOTAL BILIRUBIN 0.7 mg/dL (0.2-1.0); TOTAL PROTEIN 6.7 g/dL (6.4-8.2)
[2021-05-13 10:35] LABS: BASO % 0 % (0-3); EOS % 0 % (0-3); HEMATOCRIT 38.6 % (39.0-53.0); HEMOGLOBIN 13.7 g/dL (13.0-17.5); LYMPH # 0.7 x10^3/uL (1.0-4.8); LYMPH % 9 % (24-48); MEAN CORPUSCULAR HEMOGLOBIN 31 pg (25-35); MEAN CORPUSCULAR HGB CONC 35 g/dL (31-37); MEAN CORPUSCULAR VOLUME 88 fL (79-100); MONO # 0.5 x10^3/uL (0.0-1.1); MONO % 7 % (0-9); NEUT # 6.3 x10^3uL (1.8-7.7); NEUT % 83 % (31-73); PLATELET COUNT 131 x10^3/uL (140-400); RED BLOOD COUNT 4.39 x10^6/uL (4.30-5.70); RED CELL DISTRIBUTION WIDTH 12.8 % (11.5-14.5); WHITE BLOOD COUNT 7.6 x10^3/uL (4.0-11.0)
[2021-05-13] MEDS: IPRATROPIUM/ALBUTEROL 20/100mcg/INH INHALER. INH SCH ×5 (10:46→21:26)
[2021-05-13] MEDS: DEXAMETHASONE SOD PHOS 10 MG/ML VIAL. IV SCH (10:48)
[2021-05-13] MEDS: FAMOTIDINE 20 MG TABLET PO SCH ×2 (10:48→21:28)
[2021-05-13] MEDS: LACTOBACILLUS RHAMNOSUS GG 1 CAPSULE. PO SCH ×2 (10:48→21:28)
[2021-05-13] MEDS: AZITHROMYCIN 250 MG TABLET. PO SCH (10:48)
[2021-05-13 11:55] VITALS: BP 105/63
[2021-05-13 15:25] VITALS: BP 110/68
[2021-05-13] MEDS: REMDESIVIR 100mg in NORMAL SALINE 250ML X 4 DAYS IV SCH (17:24)
[2021-05-13 21:07] VITALS: BP 105/66
[2021-05-14 00:12] VITALS: BP 88/54
[2021-05-14 05:58] VITALS: BP 105/68
[2021-05-14 07:15] LABS: BASO % 0 % (0-3); EOS % 0 % (0-3); HEMATOCRIT 41.5 % (39.0-53.0); HEMOGLOBIN 14.3 g/dL (13.0-17.5); LYMPH # 0.7 x10^3/uL (1.0-4.8); LYMPH % 10 % (24-48); MEAN CORPUSCULAR HEMOGLOBIN 31 pg (25-35); MEAN CORPUSCULAR HGB CONC 35 g/dL (31-37); MEAN CORPUSCULAR VOLUME 89 fL (79-100); MONO # 0.5 x10^3/uL (0.0-1.1); MONO % 7 % (0-9); NEUT # 6.3 x10^3uL (1.8-7.7); NEUT % 83 % (31-73); PLATELET COUNT 160 x10^3/uL (140-400); RED BLOOD COUNT 4.68 x10^6/uL (4.30-5.70); RED CELL DISTRIBUTION WIDTH 12.8 % (11.5-14.5); WHITE BLOOD COUNT 7.5 x10^3/uL (4.0-11.0)
[2021-05-14 07:24] LABS: ALBUMIN 2.5 g/dL (3.4-5.0); ALBUMIN/GLOBULIN RATIO 0.6 (1.0-1.7); CREATININE 0.9 mg/dL (0.7-1.3); GFR 96.6; POTASSIUM 4.2 mmol/L (3.5-5.1); TOTAL BILIRUBIN 0.6 mg/dL (0.2-1.0); TOTAL PROTEIN 6.7 g/dL (6.4-8.2)
[2021-05-14] MEDS: IPRATROPIUM/ALBUTEROL 20/100mcg/INH INHALER. INH SCH ×4 (08:44→20:51)
[2021-05-14] MEDS: AZITHROMYCIN 250 MG TABLET. PO SCH (08:45)
[2021-05-14] MEDS: ENOXAPARIN 40 MG/0.4 ML SYRINGE. SQ SCH ×2 (08:45→20:50)
[2021-05-14] MEDS: ASCORBIC ACID 1,000 MG TABLET PO SCH (08:45)
[2021-05-14] MEDS: LACTOBACILLUS RHAMNOSUS GG 1 CAPSULE. PO SCH ×2 (08:45→20:51)
[2021-05-14] MEDS: FAMOTIDINE 20 MG TABLET PO SCH ×2 (08:46→20:51)
[2021-05-14] MEDS: ZINC SULFATE 220 MG CAPSULE. PO SCH (08:46)
[2021-05-14] MEDS: DEXAMETHASONE SOD PHOS 10 MG/ML VIAL. IV SCH (08:47)
--- NOTE | 2021-05-14 09:22 | PN ---
DATE: 05/13/2021 SUBJECTIVE: The patient is sitting on the edge of the bed, clearly tachypneic, hypoxic. He has just finished having a shower without oxygen and his oxygen saturation was dropping down to 72%; however, he was put on 6 liters of oxygen, his oxygen improved to 93%. He denied any chest pain. Had had multiple episodes of nausea, vomiting this morning. It has subsided at the time. PHYSICAL EXAMINATION: GENERAL: When I examined him, he looked well and was clearly no pallor, jaundice, cyanosis. No lymphadenopathy, no thyromegaly, no jugular venous distention. No limb edema. VITAL SIGNS: Her heart rate was 62, blood pressure was 105/63, temperature 97.8, respiratory rate 22 and oxygen saturation was 91% on 5 liters of oxygen. HEAD, EYES, EARS, NOSE AND THROAT: Normocephalic, atraumatic. NECK: Supple. HEART: Normal first and second heart sounds. No gallop, rub or murmur. CHEST: Showed central trachea, equal bilateral chest expansion, air entry, vesicular breath sounds with crepitation bilaterally posteriorly. I could not appreciate any wheezing or rhonchi. ABDOMEN: Slightly distended, soft, nontender. NEUROLOGICAL: He was grossly intact. His intake and output are incompletely recorded. LABORATORY DATA: This morning showed a white cell count 7600, hemoglobin 14, hematocrit 39, MCV 88 and a platelet count of 131,000 with normal manual differential. His chemistry showed a serum sodium 137, potassium 3.6, chloride 102, bicarbonate 26, anion gap of 9. BUN 19, creatinine 0.9. Estimated GFR was 96 mL/min. His glucose 112, calcium was 8, magnesium was 2.7. Total bilirubin, AST, ALT, alkaline phosphatase were normal. Total protein 6.7, albumin was 2.5. ASSESSMENT: 1. COVID-19 pneumonia. 2. Acute hypoxic respiratory failure. PLAN: To continue with IV antibiotic in the form of ceftriaxone and Zithromax. Continue with dexamethasone. Continue with remdesivir, vitamin D, zinc sulfate and ipratropium bromide, albuterol sulfate by inhaler. Continue with Lovenox. JENS DR: Gabo TID: [id number]
[2021-05-14 10:43] VITALS: BP 103/64
--- NOTE | 2021-05-14 13:24 | PN ---
DATE: 05/14/2021 ATTENDING PHYSICIAN: Dr. De. SUBJECTIVE: He is still having loose stools, but not explosive diarrhea. He is feeling well otherwise. OBJECTIVE FINDINGS: VITAL SIGNS: Blood pressure this morning is 105/68 mmHg. He is afebrile, pulse is 52 and regular, oxygen saturation 90% on 5 liters by nasal cannula. HEENT: Head is without trauma. Pupils are reactive. Sclerae nonicteric. Oropharynx is clear. NECK: Supple. LUNGS: Minimal rhonchi at bases with good breath sounds. CARDIOVASCULAR: Showed regular heart tones. ABDOMEN: Soft. No guarding. EXTREMITIES: Without edema. NEUROLOGIC: Only focally intact. LABORATORY DATA: His hemoglobin on admission was 14.3 g/dL, white count 7500. Creatinine is 0.9 mg/dL. Electrolytes within normal range. ASSESSMENT: 1. A 35-year-old unvaccinated patient with COVID-19 pneumonia bilaterally. 2. Acute respiratory failure with hypoxemia requiring supplemental oxygen. 3. Mild dehydration due to diarrhea, rehydrated. PLAN: 1. Continue supplemental oxygen. We are trying to wean the process down. 2. Diet as tolerated. 3. If we can get him down to 2 or 3 liters to maintain saturations, he can be discharged home with home oxygen. 4. Empiric antibiotics to prevent secondary infection. WILIAM/EN STRANGE: Shawn TID: [id number]
[2021-05-14 15:24] VITALS: BP 111/68
[2021-05-14] MEDS: REMDESIVIR 100mg in NORMAL SALINE 250ML X 4 DAYS IV SCH (17:23)
[2021-05-14 19:00] VITALS: BP 100/47
[2021-05-14 23:10] VITALS: BP 86/50
[2021-05-15 05:00] VITALS: BP 123/69
[2021-05-15] MEDS: ASCORBIC ACID 1,000 MG TABLET PO SCH (08:01)
[2021-05-15] MEDS: LACTOBACILLUS RHAMNOSUS GG 1 CAPSULE. PO SCH ×2 (08:01→20:01)
[2021-05-15] MEDS: ZINC SULFATE 220 MG CAPSULE. PO SCH (08:01)
[2021-05-15] MEDS: ENOXAPARIN 40 MG/0.4 ML SYRINGE. SQ SCH ×2 (08:01→20:00)
[2021-05-15] MEDS: IPRATROPIUM/ALBUTEROL 20/100mcg/INH INHALER. INH SCH ×4 (08:02→19:59)
[2021-05-15] MEDS: DEXAMETHASONE SOD PHOS 10 MG/ML VIAL. IV SCH (08:02)
[2021-05-15] MEDS: FAMOTIDINE 20 MG TABLET PO SCH ×2 (08:02→20:01)
[2021-05-15] MEDS ORDERED: ONDANSETRON PF 4 MG/2 ML VIAL. IVP PRN (10:00)
[2021-05-15 10:54] VITALS: BP 113/69
[2021-05-15 15:15] VITALS: BP 124/72
[2021-05-15] MEDS: REMDESIVIR 100mg in NORMAL SALINE 250ML X 4 DAYS IV SCH (16:40)
[2021-05-15 19:00] VITALS: BP 115/75
[2021-05-15] MEDS: ACETAMINOPHEN 500 MG TABLET PO PRN (20:01)
--- NOTE | 2021-05-15 22:24 | PN ---
DATE: 05/15/2021 ATTENDING PHYSICIAN: Dr. Hui. SUBJECTIVE: Still nauseated. Affect flat. He is not very responsive this morning. He refused to even open his eyes. OBJECTIVE FINDINGS: VITAL SIGNS: Blood pressure is 122/69, pulse 108 and regular. He is afebrile. Oxygen saturation 93% on 5 liters. HEENT: Head is without trauma. Pupils are reactive. Sclerae nonicteric. NECK: Supple. LUNGS: Shallow respirations with minimal rhonchi at the bases. CARDIOVASCULAR: Regular heart tones. No gallop. ABDOMEN: Soft. No guarding. Hypoactive bowel sounds. EXTREMITIES: Show no edema. SKIN: Warm and dry. ASSESSMENT: 1. A 35-year-old gentleman with COVID-19 pneumonia bilaterally. 2. Acute respiratory failure with hypoxemia requiring supplemental oxygen. 3. Dehydration due to diarrhea and gastroenteritis. PLAN: 1. Continue supplemental oxygen. 2. Zofran p.r.n. 3. Advance diet as tolerated. 4. We are trying to wean down his oxygen requirements for discharge. JESSICA DR: Shawn TID: [id number]
[2021-05-15 23:00] VITALS: BP 112/66
[2021-05-16 05:00] VITALS: BP 125/56
[2021-05-16] MEDS: IPRATROPIUM/ALBUTEROL 20/100mcg/INH INHALER. INH SCH ×4 (08:01→20:00)
[2021-05-16] MEDS: ENOXAPARIN 40 MG/0.4 ML SYRINGE. SQ SCH ×2 (08:01→21:53)
[2021-05-16] MEDS: DEXAMETHASONE SOD PHOS 10 MG/ML VIAL. IV SCH (08:01)
[2021-05-16] MEDS: FAMOTIDINE 20 MG TABLET PO SCH ×2 (08:01→21:53)
[2021-05-16] MEDS: LACTOBACILLUS RHAMNOSUS GG 1 CAPSULE. PO SCH ×2 (08:02→21:53)
[2021-05-16] MEDS: ZINC SULFATE 220 MG CAPSULE. PO SCH (08:02)
[2021-05-16] MEDS: ASCORBIC ACID 1,000 MG TABLET PO SCH (08:02)
[2021-05-16 10:14] VITALS: BP 124/78
[2021-05-16] MEDS ORDERED: DIPHENOXYLATE/ATROPINE TABLET. PO PRN (10:15)
--- NOTE | 2021-05-16 11:55 | PN ---
DATE: 05/16/2021 ATTENDING PHYSICIAN: Dr. Hui. SUBJECTIVE: Still dyspneic, requiring 7 liters of supplemental oxygen to maintain sats, still having loose stools. OBJECTIVE FINDINGS: VITAL SIGNS: Blood pressure this morning is 125/56, pulse is 79 and regular. He is afebrile. Oxygen saturation 93% on 7 liters by nasal cannula. HEENT: Head is without trauma. Pupils are reactive. Sclerae are nonicteric. The oropharynx appears clear. NECK: Supple, no bruits. LUNGS: Minimal rhonchi at bases. CARDIOVASCULAR: Regular heart tones. No gallop. ABDOMEN: Soft. No guarding. EXTREMITIES: Without edema. NEUROLOGIC: Focally intact. SKIN: Warm and dry. ASSESSMENT: 1. A 35-year-old gentleman, unvaccinated patient with bilateral COVID pneumonia. 2. Acute respiratory failure with hypoxemia requiring supplemental oxygen. 3. Dehydration. 4. Persistent loose stools and diarrhea. PLAN: 1. Continue to wean down supplemental oxygen. 2. Zofran p.r.n. 3. Lomotil p.r.n. 4. Diet as tolerated. 5. Continue empiric steroids. WILIAM/SAIDA DR: WILIAM/kalen TID: [id number]
[2021-05-16 16:15] VITALS: BP 121/58
[2021-05-16] MEDS: REMDESIVIR 100mg in NORMAL SALINE 250ML X 4 DAYS IV SCH (16:35)
[2021-05-16 19:59] VITALS: BP 122/75
[2021-05-17 00:25] VITALS: BP 113/81
[2021-05-17 06:17] VITALS: BP 109/65
--- NOTE | 2021-05-17 06:25 | RAD ---
EXAM: CHEST ONE VIEW. HISTORY: COVID-19 pneumonia. COMPARISON: 05/12/2021. FINDINGS: A frontal view of the chest is obtained. Bilateral patchy airspace infiltrates have increased. There is no pneumothorax or pleural effusion. T he heart is not enlarged. IMPRESSION: 1. Increased bilateral diffuse infiltrates. Electronically signed by: Chiquis Saldaña MD (05/17/2021 6:23 AM) [facility]
[2021-05-17] MEDS: IPRATROPIUM/ALBUTEROL 20/100mcg/INH INHALER. INH SCH ×4 (08:00→20:00)
--- NOTE | 2021-05-17 09:27 | PN ---
DATE: 05/17/2021 ATTENDING PHYSICIAN: Dr. Hui. SUBJECTIVE: The patient is not any better. He is still dyspneic, requiring high oxygen flow rates. OBJECTIVE FINDINGS: VITAL SIGNS: Blood pressure this morning is 109/65, pulse is 61 and regular. He is afebrile. Oxygen saturation 92% on 5 liters. HEENT: Head is without trauma. Pupils are reactive. Sclerae nonicteric. Oropharynx clear. NECK: Supple. LUNGS: Coarse rhonchi bilaterally. CARDIOVASCULAR: Regular heart tones. ABDOMEN: Soft. EXTREMITIES: Without edema. IMAGING DATA: Followup chest x-ray showed increasing infiltrates bilaterally. ASSESSMENT: A 34-year-old gentleman with; 1. COVID-19 pneumonia bilaterally. He is unvaccinated. 2. Acute respiratory failure with hypoxemia. 3. Dehydration. 4. Persistent loose stools. PLAN: 1. Continue to wean down oxygen supplement. 2. Zofran. 3. Lomotil scheduled. 4. Diet as tolerated. 5. Continue empiric steroids. AMANDA DR: Shawn TID: [id number]
[2021-05-17] MEDS: ENOXAPARIN 40 MG/0.4 ML SYRINGE. SQ SCH ×2 (09:59→21:09)
[2021-05-17] MEDS: LACTOBACILLUS RHAMNOSUS GG 1 CAPSULE. PO SCH ×2 (09:59→21:08)
[2021-05-17] MEDS: ZINC SULFATE 220 MG CAPSULE. PO SCH (10:00)
[2021-05-17] MEDS: ASCORBIC ACID 1,000 MG TABLET PO SCH (10:00)
[2021-05-17] MEDS: FAMOTIDINE 20 MG TABLET PO SCH ×2 (10:00→21:08)
[2021-05-17] MEDS: DEXAMETHASONE SOD PHOS 10 MG/ML VIAL. IV SCH (10:02)
[2021-05-17 10:55] VITALS: BP 111/65
[2021-05-17] MEDS ORDERED: NYQUIL PO PRN (12:45)
[2021-05-17] MEDS: DAYQUIL PO PRN (13:13)
[2021-05-17 15:11] VITALS: BP 107/66
[2021-05-17 19:33] VITALS: BP 110/74
[2021-05-17] MEDS: ACETAMINOPHEN 500 MG TABLET PO PRN (21:08)
[2021-05-17 23:30] VITALS: BP 114/63
[2021-05-18 06:21] VITALS: BP 110/74
[2021-05-18] MEDS: IPRATROPIUM/ALBUTEROL 20/100mcg/INH INHALER. INH SCH ×2 (08:00→12:00)
[2021-05-18] MEDS: ZINC SULFATE 220 MG CAPSULE. PO SCH (08:48)
[2021-05-18] MEDS: ENOXAPARIN 40 MG/0.4 ML SYRINGE. SQ SCH (08:48)
[2021-05-18] MEDS: FAMOTIDINE 20 MG TABLET PO SCH (08:48)
[2021-05-18] MEDS: ASCORBIC ACID 1,000 MG TABLET PO SCH (08:48)
[2021-05-18] MEDS: DEXAMETHASONE SOD PHOS 10 MG/ML VIAL. IV SCH (08:49)
[2021-05-18] MEDS: LACTOBACILLUS RHAMNOSUS GG 1 CAPSULE. PO SCH (08:49)
[2021-05-18] MEDS: DAYQUIL PO PRN (09:03)
--- NOTE | 2021-05-18 09:45 | DS ---
DATE OF DISCHARGE: 05/18/2021 ATTENDING PHYSICIAN: Dr. Hui. FINAL DISCHARGE DIAGNOSES: 1. Bilateral COVID pneumonia in an unvaccinated patient. 2. Acute hypoxemic respiratory failure with hypoxemia. 3. Mild dehydration. 4. Gastrointestinal symptoms, resolved. HISTORY AND PHYSICAL: The patient is a 35-year-old gentleman, unvaccinated patient with COVID-19 pneumonia. Chest x-ray on admission showed bilateral infiltrates, patchy diffuse ground-glass appearance. He was also hypoxemic with oxygen saturation diminished requiring high flow oxygen rate. He was admitted for further treatment and evaluation. PHYSICAL EXAMINATION: Please see the dictated note. PERTINENT LABORATORY AND X-RAY STUDIES: Admission hemoglobin was 14.4 g/dL with a white count of 8500. Electrolytes showed a sodium 133, repeat was 142 mEq per liter. Creatinine stable at 0.9 mg percent. Transaminases normal. Blood sugar 109. Serology was indeed positive for coronavirus prior to admission. COURSE IN THE HOSPITAL: The patient was admitted. He was given supplemental oxygen, Decadron and p.r.n. GI meds. He was sick for the first 3 days. Gradually, his diarrhea and loose stools resolved. He was able to eat solid foods. Oxygen requirements were high, but was weaned down to 3 liters by nasal cannula. By the sixth hospital day, he had 90% saturation on 3 liters by nasal cannula. He was afebrile and his blood pressure and vital signs were stable. He was discharged home with supplemental oxygen 3 liters daily, Decadron 8 mg p.o. daily for 7 more days. Followup with his regular physician if he has one. He was discharged then in stable condition with explicit instruction and followup care. Total discharge time spent [address]: Shawn TID: [id number]
== END 2021-05-18 12:40 | disposition home or self-care (01) | DRG 177 ==
LOC: ER 07:06 → 1 SOUTH 08:47
PROVIDERS: ADMIT Internal Medicine; ATTEND Internal Medicine
PROC: XW043E5 Introduction of Remdesivir Anti-infective into Central Vein, Percutaneous Approach, New Technology Group 5 (ICD-10-PCS; principal; 2021-05-12)
DX: U07.1 COVID-19 (principal); J12.82 Pneumonia due to coronavirus disease 2019; J96.01 Acute respiratory failure with hypoxia; E86.0 Dehydration; K52.9 Noninfective gastroenteritis and colitis, unspecified; F90.9 Attention-deficit hyperactivity disorder, unspecified type; Z28.3 Underimmunization status
CPT/HCPCS: 36415; 71045; 80053; 83735; 85025; 96365; 96372; 96375; J0696; J1100; J1650; J7050; 99285-25